=== PATIENT | female | born 1980 | race Caucasian/White ===

== ENCOUNTER 2019-12-17 06:33 | Day surgery (SDC) | payer OTHER, SELFPAY ==
[~2019-12-17] VITALS: Ht 152.4 cm; Wt 66.2 kg
[2019-12-17] MEDS ORDERED: diphenhydrAMINE 50 MG/ML VIAL ONE (08:35)
[2019-12-17] MEDS ORDERED: MIDAZOLAM 5 MG/5 ML VIAL ONE (08:35)
[2019-12-17] MEDS ORDERED: fentaNYL citrate 0.05 MG/ML VIAL ONE (08:35)
[2019-12-17] MEDS ORDERED: LIDOCAINE VISCOUS 2% 20 ML UDC ONE (08:36)
[2019-12-17] MEDS ORDERED: fentaNYL citrate 0.05 MG/ML VIAL IVP ONE (14:30)
[2019-12-17] MEDS ORDERED: MIDAZOLAM 2 MG/2 ML VIAL IVP ONE (14:30)
== END 2019-12-17 10:00 | disposition home or self-care (01) ==
LOC: MOR 06:33 → MMU 06:35 → MOR 10:00
PROVIDERS: ATTEND Internal Medicine Gastroenterology
DX: R10.13 Epigastric pain (principal); K21.9 Gastro-esophageal reflux disease without esophagitis; K44.9 Diaphragmatic hernia without obstruction or gangrene; Z79.899 Other long term (current) drug therapy; Z20.828 Contact with and (suspected) exposure to other viral communicable diseases
CPT/HCPCS: 43235; 81025; J2250; J3010; U0003; J1200